=== PATIENT | male | born 1985 | race Caucasian/White ===

== ENCOUNTER 2017-03-03 05:49 | Day surgery (SDC) | payer BC ==
[2017-02-25 10:53] LABS: BUN (BLOOD UREA NITROGEN) 12 MG/DL (6-23); CALCIUM, SERUM 9.5 MG/DL (8.5-10.4); CHLORIDE, SERUM 106 MMOL/L (96-112); CO2 (CARBON DIOXIDE) 33 MMOL/L (24-34); CREATININE 1.14 MG/DL (0.70-1.30); GFR AFRICAN AMERICAN 98 ML/MIN (>=60); GFR NON AFRICAN AMERICAN 85 ML/MIN (>=60); GLUCOSE, SERUM 94 MG/DL (60-99); POTASSIUM, SERUM 4.9 MMOL/L (3.5-5.3); SODIUM, SERUM 143 MMOL/L (135-148)
--- NOTE | ~2017-03-03 | OP ---
Record Of Operation [facility] [address] [place]. [address] NAME: VANESA BEJARANO : 85 STATUS : REG [facility] PAT#: [id number] AGE: 32 ADM/REG DATE : 03/03/17 MR#: [id number] REPORT SERV DATE: 03/03/17 DICTATED BY: ISRAEL GLORIA DATE: 03/03/17 REPORT STATUS : Draft TRANSCRIBED BY: MODL DATE: 03/03/17 DATE OF PROCEDURE: 03/03/2017 PREOPERATIVE DIAGNOSES: 1. Recurrent incisional hernia (reducible). 2. 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 POSTOPERATIVE DIAGNOSES: 1. Recurrent incisional hernia (reducible). 2. 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 PROCEDURE: Robotic recurrent incisional hernia repair with mesh (preperitoneal). ANESTHESIA: General. SURGEON: Israel Gloria M.D. SHEET METAL ENGINEER: Enrique. COMPLICATIONS: None. DRAINS: None. ESTIMATED BLOOD LOSS: 20 mL. FINDINGS: The patient is noted to have a recurrent periumbilical and umbilical incisional hernias that were repaired primarily and a ProGrip mesh was placed and the peritoneum was reapproximated. OPERATIVE TECHNIQUE: The patient was brought to the operative room, placed on the table in supine position. He had preoperative IV antibiotics. He had sequential hose in place. He underwent general endotracheal anesthesia, and was prepped and draped in sterile fashion. A time-out was completed. Local anesthesia was not done as the patient had a previous TAP. A left subcostal incision was made two fingerbreadths above the sternocostal margin, and a Veress needle was inserted. Water drop test was safely performed. A 15 mm of pneumoperitoneum was then obtained. An 8 mm robotic trocar was then placed and the laparoscope was inserted. There was no evidence of Veress or trocar injury. The patient then had a left lower quadrant 8 mm robotic trocar placed under direct visualization and two 12 mm trocars placed under direct visualization in the left lateral abdomen. One in the middle and one on the left mid upper abdomen. These were all placed under direct visualization. The camera was inserted. The patient was noted to have umbilical and supraumbilical incisional hernias that were recurrent. The patient then had a peritoneum taken down longitudinally from the left upper quadrant to the left lower quadrant. A peritoneal flap was then created circumferentially around the defect all the way to the right rectus muscles lateral border on the right side. The hernia sac was then completely reduced from the tissue and left in situ, and reduced this completely from the defect that Record Of Operation [facility] [id number] [place]. [address] NAME: VANESA BEJARANO : 85 STATUS : REG [facility]#: [id number] AGE: 32 ADM/REG DATE : 03/03/17 MR#: [id number] REPORT SERV DATE: 03/03/17 DICTATED BY: ISRAEL GLORIA DATE: 03/03/17 REPORT STATUS : Draft TRANSCRIBED BY: VERONICA DATE: 03/03/17 had preperitoneal fat, and no other incarcerated contents. There was approximately a 2 cm wide and 4 cm long defect. The pneumoperitoneum was then carefully reduced and the defect was closed primarily with a 2-0 running V-Loc suture without tension. The peritoneum was then measured and a 6 cm wide and 10 cm long piece of ProGrip mesh was then placed into the abdomen and positioned on the anterior abdominal wall with overlap over the primary closure. The peritoneum was once again reduced, and the ProGrip mesh was unfolded and positioned without difficulty. The hernias had been completely reduced, reapproximated primarily, and covered with mesh, and therefore the peritoneum was then reapproximated using a running 2-0 V-Loc suture. The pneumoperitoneum was then re-established, and the patient was rolled with his left side up and the suture passer was used to close the 12 mm site under direct visualization with the Vicryl suture. The skin edges were reapproximated using interrupted subcuticular Monocryl sutures. Dermabond was applied. He was extubated and taken to the recovery room in stable condition. All sponge and needle counts reported correct. SHILPI/VERONICA Israel Gloria M.D. / [id number] CC: Israel Gloria M.D.
[~2017-03-03 05:49] MED LIST: *DENIES; PT TAKES NO MEDS
== END 2017-03-03 18:21 | disposition home or self-care (01) ==
LOC: SDC 05:49
PROVIDERS: Surgery
PROC: 0WUF0JZ Supplement Abdominal Wall with Synthetic Substitute, Open Approach (ICD-10-PCS; principal; 2017-03-03 07:00)
DX: K43.2 Incisional hernia without obstruction or gangrene (principal); I10 Essential (primary) hypertension; Z95.1 Presence of aortocoronary bypass graft
CPT/HCPCS: 80048; 87641; 93005; A9270-GY; C1781; J0690; J1885; J2250; J2405; J2550; J2710; J2795; J3010